=== PATIENT | female | born 1995 | race African-American/Black ===

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

== ENCOUNTER 2017-05-01 11:30 | Emergency (ER) | payer BC ==
[2017-05-01 11:55] LABS: Bilirubin Negative (Negative); Blood, Urine Trace (Negative); Clarity Cloudy (Clear); Glucose, Urine (Dipstick) Negative (Negative); Leukocyte Negative (Negative); Nitrite Negative (Negative); Protein, Urine (Dipstick) Negative (Neg-Trace); pH, Urine 5.5 (5.0-9.0)
[2017-05-01 11:58] LABS: Bacteria/HPF 4+ HPF (None Seen); RBC/HPF 0-3 HPF (0-3); WBC/HPF 0-3 HPF (0-3)
--- NOTE | 2017-05-01 14:29 | CT ---
CT ABDOMEN AND PELVIS WITHOUT CONTRAST: Date: 05/01/[address] of the abdomen and pelvis was performed for evaluation of continued nausea and vomiting. Ax ial slices were acquired without oral or IV contrast by request. Coronal reconstructions were done. FINDINGS: The lung bases are clear. There are no infiltrates or effusions. The liver, spleen, pancreas, kidneys, gallbladder, and abdominal aorta showed no acute findings withi n the limitations of a noncontrast study. The bowel is not distended. There were no gross inflammatory changes around bowel. The small bowel is fluid-filled, but not dilated. This is a nonspecific finding and can sometimes be seen in enteritis. CT of the pelvis showed no free fluid, pelvic masses, or obvious inflammatory change. Incidentally noted was a prominent reverse S-shaped thoracolumbar scoliosis. IMPRESSION: Nonspecific findings of fluid-filled nondilated small bowel. This can sometimes be seen in enteritis. Exam was otherwise unremarkable. POS: HOME
== END 2017-05-01 12:12 | disposition home or self-care (01) ==
LOC: BURERS 11:30
DX: K52.9 Noninfective gastroenteritis and colitis, unspecified (principal); Z79.899 Other long term (current) drug therapy
CPT/HCPCS: 74176; 81003; 81015

== ENCOUNTER 2020-12-20 11:37 | Emergency (ER) | payer BC ==
[2020-12-20] MEDS ORDERED: Promethazine HCl 25 MG/ML VIAL ONE (12:00)
[2020-12-20 12:12] LABS: #Basophils 0.1 thou/uL (0.0-0.2); #Lymphocytes 0.3 thou/uL (1.20-3.40); #Monocytes 0.4 thou/uL (0.11-0.59); #Neutrophils 8.2 thou/uL (1.40-6.50); %Basophils 0.6 % (0.0-1.0); %Eosinophils 0.1 % (0.0-10.0); %Lymphocytes 3.6 % (21.0-51.0); %Monocytes 4.8 % (0.0-10.0); %Neutrophils 90.9 % (42.0-75.0); Hemoglobin 13.5 g/dL (12.0-16.0); Mean Corpuscular HGB CONC 32.4 g/dL (32.0-36.0); Mean Corpuscular Hemoglobin 28.3 pg (27.0-31.0); Mean Corpuscular Volume 87.3 fL (78.0-98.0); Platelet Count 154 thou/uL (130-400); RBC Distribution Width 15.4 % (11.5-14.5); Red Blood Cell (RBC) Count 4.77 mill/uL (4.20-5.40)
[2020-12-20 12:26] LABS: ALT (SGPT) 15 U/L (8-55); AST (SGOT) 28 U/L (5-34); Albumin 4.1 g/dL (3.5-5.0); Alkaline Phosphatase 51 U/L (40-110); Anion Gap 20 mmol/L (10-20); BUN (Urea Nitrogen) 8 mg/dL (7.0-18.7); Bilirubin, Total 0.5 mg/dL (0.2-1.2); Calc. Creatinine Clearance 0 mL/min (70-130); Carbon Dioxide 16 mmol/L (22-29); Chloride 105 mmol/L (98-107); Globulin 4.5 g/dL (2.4-3.5); Glucose 90 mg/dL (70-105); Potassium 3.6 mmol/L (3.5-5.1); Protein, Total 8.6 g/dL (6.0-8.3); Sodium 137 mmol/L (136-145)
[2020-12-20] MEDS ORDERED: Haloperidol Lactate 5 MG/ML VIAL ONE (13:01)
== END 2020-12-20 14:19 | disposition home or self-care (01) ==
LOC: BURERS 11:37
DX: O21.1 Hyperemesis gravidarum with metabolic disturbance (principal); F12.188 Cannabis abuse with other cannabis-induced disorder; Z3A.14 14 weeks gestation of pregnancy
CPT/HCPCS: 80053; 85025; 96374; 96375; J1630; J2550

== ENCOUNTER 2021-05-21 02:52 | Emergency (ER) | payer BC, MEDICAID ==
[2021-05-21] MEDS ORDERED: Clindamycin 150 MG CAP ONE (03:24)
[2021-05-21] MEDS ORDERED: Morphine 4 MG/ML VIAL ONE (03:24)
== END 2021-05-21 03:34 | disposition home or self-care (01) ==
LOC: BURERS 02:52
DX: H66.92 Otitis media, unspecified, left ear (principal)
CPT/HCPCS: 96372; 99282; J2270

== ENCOUNTER 2022-02-08 19:25 | Emergency (ER) | payer BC, OTHER ==
[2022-02-08] MEDS ORDERED: Ondansetron PF 4 MG/2 ML Vial ONE (20:08)
[2022-02-08 20:11] LABS: #Basophils 0.1 thou/uL (0.0-0.2); #Lymphocytes 1.5 thou/uL (1.20-3.40); #Monocytes 0.3 thou/uL (0.11-0.59); #Neutrophils 5.1 thou/uL (1.40-6.50); %Basophils 0.8 % (0.0-1.0); %Eosinophils 0.1 % (0.0-10.0); %Lymphocytes 21.2 % (21.0-51.0); %Monocytes 4.9 % (0.0-10.0); %Neutrophils 73.1 % (42.0-75.0); Hemoglobin 14.4 g/dL (12.0-16.0); Mean Corpuscular HGB CONC 33.7 g/dL (32.0-36.0); Mean Corpuscular Hemoglobin 29.4 pg (27.0-31.0); Mean Corpuscular Volume 87.3 fL (78.0-98.0); Platelet Count 218 thou/uL (130-400); RBC Distribution Width 12.8 % (11.5-14.5); Red Blood Cell (RBC) Count 4.89 mill/uL (4.20-5.40)
[2022-02-08 20:27] LABS: Bilirubin Negative (Negative); Blood, Urine Negative (Negative); Clarity Slightly Cloudy (Clear); Glucose, Urine (Dipstick) Negative (Negative); Ketone, Urine 40 mg/dL (Negative); Leukocyte Trace (Negative); Nitrite Positive (Negative); Protein, Urine (Dipstick) Negative (Neg-Trace); Specific Gravity, Urine 1.025 (1.005-1.030); Urobilinogen 0.2 mg/dL (Less than 2)
[2022-02-08 20:27] LABS: ALT (SGPT) 15 U/L (8-55); AST (SGOT) 19 U/L (5-34); Albumin 4.5 g/dL (3.5-5.0); Alkaline Phosphatase 60 U/L (40-110); Anion Gap 16 mmol/L (10-20); BUN (Urea Nitrogen) 7 mg/dL (7.0-18.7); Bilirubin, Total 0.5 mg/dL (0.2-1.2); Calc. Creatinine Clearance 0 mL/min (70-130); Calcium 9.6 mg/dL (7.8-10.44); Carbon Dioxide 20 mmol/L (22-29); Chloride 104 mmol/L (98-107); Estimated GFR 120; Globulin 3.8 g/dL (2.4-3.5); Glucose 86 mg/dL (70-105); Lipase 40 U/L (8-78); Potassium 3.4 mmol/L (3.5-5.1); Protein, Total 8.3 g/dL (6.0-8.3); Sodium 137 mmol/L (136-145)
[2022-02-08 20:37] LABS: RBC/HPF 0-3 HPF (0-3); Squamous Epithelial 0-3 HPF (0-3)
[2022-02-08 20:38] LABS: Bacteria/HPF 1+ HPF (None Seen)
== END 2022-02-08 21:40 | disposition home or self-care (01) ==
LOC: BURERS 19:25
DX: O23.41 Unspecified infection of urinary tract in pregnancy, first trimester (principal); N39.0 Urinary tract infection, site not specified; B96.20 Unspecified Escherichia coli [E. coli] as the cause of diseases classified elsewhere; Z3A.01 Less than 8 weeks gestation of pregnancy
CPT/HCPCS: 80053; 81003; 81015; 83690; 84702; 85025; 87086; 87186; 96361; 96374; J2405

== ENCOUNTER 2022-04-21 18:48 | Emergency (ER) | payer BC, OTHER ==
[2022-04-21] MEDS ORDERED: Ondansetron PF 4 MG/2 ML Vial ONE (19:18)
[2022-04-21 19:40] LABS: #Basophils 0.1 thou/uL (0.0-0.2); #Lymphocytes 1.5 thou/uL (1.20-3.40); #Monocytes 0.5 thou/uL (0.11-0.59); #Neutrophils 5.8 thou/uL (1.40-6.50); %Basophils 0.8 % (0.0-1.0); %Eosinophils 0.6 % (0.0-10.0); %Lymphocytes 19.1 % (21.0-51.0); %Monocytes 6.1 % (0.0-10.0); %Neutrophils 73.3 % (42.0-75.0); Hemoglobin 12.2 g/dL (12.0-16.0); Mean Corpuscular HGB CONC 32.3 g/dL (32.0-36.0); Mean Corpuscular Hemoglobin 29.9 pg (27.0-31.0); Mean Corpuscular Volume 92.5 fl (78.0-98.0); Mean Platelet Volume 9.7 fL (7.4-10.4); Platelet Count 176 10x3/uL (130-400); RBC Distribution Width 12.4 % (11.5-14.5); Red Blood Cell (RBC) Count 4.09 mill/uL (4.20-5.40)
[2022-04-21 19:56] LABS: ALT (SGPT) 11 U/L (8-55); AST (SGOT) 16 U/L (5-34); Albumin 3.9 g/dL (3.5-5.0); Alkaline Phosphatase 55 U/L (40-110); Anion Gap 12 mmol/L (10-20); BUN (Urea Nitrogen) 6 mg/dL (7.0-18.7); Bilirubin, Total 0.3 mg/dL (0.2-1.2); Calc. Creatinine Clearance 0 mL/min (70-130); Calcium 9.2 mg/dL (7.8-10.44); Carbon Dioxide 24 mmol/L (22-29); Chloride 104 mmol/L (98-107); Estimated GFR 122; Globulin 3.5 g/dL (2.4-3.5); Glucose 73 mg/dL (70-105); Protein, Total 7.4 g/dL (6.0-8.3); Sodium 136 mmol/L (136-145)
[2022-04-21 21:00] LABS: Bilirubin Negative (Negative); Blood, Urine Negative (Negative); Clarity Clear (Clear); Glucose, Urine (Dipstick) Negative (Negative); Ketone, Urine Negative (Negative); Leukocyte Negative (Negative); Nitrite Positive (Negative); Protein, Urine (Dipstick) Negative (Neg-Trace); Urobilinogen 0.2 mg/dL (Less than 2)
[2022-04-21 21:07] LABS: RBC/HPF None Seen HPF (0-3); Squamous Epithelial 0-3 HPF (0-3); WBC/HPF 0-3 HPF (0-3)
[2022-04-21 21:08] LABS: Bacteria/HPF 3+ HPF (None Seen)
== END 2022-04-21 21:15 | disposition home or self-care (01) ==
LOC: BURERS 18:48
DX: O99.612 Diseases of the digestive system complicating pregnancy, second trimester (principal); A08.4 Viral intestinal infection, unspecified; Z3A.18 18 weeks gestation of pregnancy
CPT/HCPCS: 36415; 80053; 81003; 81015; 85025; 96374; J2405

== ENCOUNTER 2023-06-20 11:25 | Emergency (ER) | payer BC, OTHER ==
[2023-06-20 15:23] LABS: SARS-CoV-2 NAA Rapid Test Not Detected (NotDetected)
== END 2023-06-20 13:30 | disposition home or self-care (01) ==
LOC: BURERS 11:25
DX: B34.9 Viral infection, unspecified (principal)
CPT/HCPCS: 99283